=== PATIENT | female | born 1995 | race African-American/Black ===

== ENCOUNTER 2022-08-25 18:55 | Emergency (ER) | payer OTHER, SELFPAY ==
--- NOTE | ~2022-08-25 | CT_ITS ---
EXAMINATION: CT BRAIN W/O DATE: 08/25/2022 19:54 INDICATION: Syncope TECHNIQUE: Computed tomography (CT) of the head was performed without intravenous contrast. The dose- length product was 605.33 mGy-cm. Automated exposure control and iterative reconstruction technique were employed. COMPARISON: No prior studies for comparison. FINDINGS: Normal brain parenchymal volume for age. Normal gupta-white differentiation. No acute intrac ranial hemorrhage, infarction, mass or mass effect. No ventriculomegaly or midline shift. Midline sagittal images demonstrate a normal corpus callosum, c raniovertebral junction and sella turcica. Basilar cisterns are patent. Paranasal sinuses and mastoids are pneumatized. No depressed skull fractures. IMPRESSION: 1. No acute intracranial abnormality. Reviewed, dictated and finalized at location A.
--- NOTE | ~2022-08-25 | XR_ITS ---
XR chest 1V portable 08/25/2022 19:54 Indication: Syncope. Procedure: AP portable chest Comparison: No prior studies for comparison. Findings: Heart size normal for technique. Shallow inspiration with crowding of the pulmonary vessels . No focal air space disease, pulmonary edema, pleural effusion or suspected pneumothorax. No acute o sseous abnormality. Impression: 1: No acute cardiopulmonary disease. Reviewed, dictated and finalized at location A. Impression: 1: No acute cardiopulmonary disease.
[2022-08-25 19:09] VITALS: BP 105/68; PULSE 106; RESP 20; TEMP 37.1; O2SAT 100
--- NOTE | 2022-08-25 19:41 | ECG_ITS ---
Measurements Intervals [place] Rate: 66 P: 72 ME: 162 QRS: 61 QRSD: 89 T: 31 QT: 358 QTc: 377 Interpretive Statements SINUS RHYTHM NORMAL ECG NO PREVIOUS ECG AVAILABLE FOR COMPARISON Electronically Signed On 08-26-2022 13:39:32 CDT by Darryl Mercedes M.D.
--- NOTE | 2022-08-25 19:42 | ED.DIZZY ---
HPI - Dizziness General Chief Complaint: Syncope Stated Complaint: syncopal episode Time Seen by Provider: 08/25/22 19:37 Source: RN notes reviewed History of Present Illness HPI Narrative: Patient presents emergency department from work via EMS for syncope. Patient states that she was standing working when she had a syncopal episode. States she remembers feeling hot prior to the episode she denied having any chest pain or shortness of breath prior to the episode she denies any complaints at this time. States she has never had a previous syncopal episode before in the past. She denies any vision changes chest pain shortness of breath abdominal pain nausea vomiting Related Data Allergies Allergy/AdvReac Type Severity Reaction Status Date / Time No Known Allergies Allergy Verified 08/25/22 20:30 Review of Systems Review of Systems: Gen.: Denies fevers or chills Eyes: Denies eye pain or visual change ENT: Denies congestion Respiratory: Denies shortness of breath or cough CV: Reports syncope GI: Denies abdominal pain nausea, emesis or diarrhea Musculoskeletal: Denies back pain or muscle pain Neuro: Denies numbness, tingling, weakness or focal weakness Skin: Denies rash Except as documented, all other systems reviewed and negative [facility] Past Medical History Medical History (Updated 08/25/22 @ 21:52 by Gage Laureano DO) Patient denies significant medical history Social History Social History (Updated 08/25/22 @ 19:43 by Gage Laureano DO) Smoking status: Never smoker Exam Narrative: APPEARANCE: No acute distress, nontoxic, resting in bed EYES: EOMI, PERRL HEENT: Normocephalic, atraumatic, OMM Neck: Supple no midline tenderness palpation full range of motion without pain RESPIRATORY: No respiratory distress Clear to auscultation bilaterally with no rhonchi wheezing or rales. CARDIOVASCULAR: Regular rate and rhythm without murmurs rubs or gallops. ABDOMINAL: Soft, nontender, nondistended, no rebound or guarding MUSCULOSKELETAl: Moves all extremities. No clubbing, cyanosis or edema. NEURO: Awake and alert x 4. Following commands, speech normal, no focal deficits SKIN:: Warm, dry. No rashes lesions or abrasions PSYCHIATRIC: Normal affect/mood, Course Course Emergency Course: Patient is remained on antisqueak filler throughout stay in ED with no arrhythmias noted Discussed with patient results of workup and diagnosis. Discussed need for follow-up with primary care, proper use of medication, and reasons to return to the emergency department. Patient understands and agrees to current treatment plan Vital Signs Vital signs: Vital Signs Temperature 98.7 F 08/25/22 19:09 Pulse Rate 106 H 08/25/22 19:09 Respiratory Rate 20 08/25/22 19:09 Blood Pressure 105/68 08/25/22 19:09 Pulse Oximetry 100 08/25/22 19:09 Oxygen Delivery Room Air 08/25/22 19:09 Temperature 98.7 F 08/25/22 19:09 Pulse Rate 80 08/25/22 20:42 Respiratory Rate 20 08/25/22 19:09 Blood Pressure 110/79 08/25/22 20:42 Pulse Oximetry 100 08/25/22 19:09 Oxygen Delivery Room Air 08/25/22 19:09 MDM - Dizziness MDM Narrative Medical decision making narrative: Patient's episode of syncope is felt due to high risk cause. Syncopal episode was brief and patient is now back to normal mental status. EKG is reviewed without high-risk changes for syncope: There are no signs of prolonged QT or Brugada syndrome. Patient ambulates with a steady gait and is felt to be a reasonable candidate for further evaluation as an outpatient Lab Data Result diagrams: 08/25/22 20:48 08/25/22 20:48 Labs: Lab Results 08/25/22 08/25/22 08/25/22 Range/Units 20:35 20:42 20:48 WBC 9.1 (4.5-10.0) K/mm3 RBC 4.32 (4.2-5.4) M/mm3 Hgb 12.9 (12.0-15.0) g/dL Hct 39.0 (37.0-47.0) % MCV 90.3 (80-100) fl MCH 29.9 (26-34) pg MCHC 33.1 (32-36) g/dl RDW 13.5 (11.5-14.5)
[2022-08-25 20:37] VITALS: BP 105/69; PULSE 85
[2022-08-25 20:37] LABS: Glucose Point of Care 92 mg/dl (65-105)
[2022-08-25 20:42] VITALS: BP 110/79; PULSE 80
[2022-08-25] MEDS: SODIUM CHLORIDE 0.9% IV 1,000 ML 999 ML IV CONT (20:50)
[2022-08-25 21:10] LABS: Appearance Urine Slightly Cloudy (Clear); Bilirubin Urine 1+ (Negative); Blood Urine 1+ (Negative); Glucose Urine UA Negative (Negative); Ketones Urine 2+ mg/dL (Negative); Leukocyte Esterase Ur Negative LEU/UL (Negative); Nitrate Urine Negative (Negative); Protein Urine 1+ mg/dL (Negative); Specific Grav Ur 1.025 (1.001-1.035)
[2022-08-25 21:13] LABS: Basophils Percent Auto 0.4 % (0.2-1.2); Eosinophils Percent Auto 0.3 % (0-4.4); Hemoglobin 12.9 g/dL (12.0-15.0); Immature Granulocyte Absolute 0.03 K/mm3 (0.00-0.031); Immature Granulocyte Percent A 0.3 % (0-0.5); Lymphocytes Absolute Auto 1.37 K/mm3 (0.9-3.2); Lymphocytes Percent Auto 15.1 % (18.3-44.2); Mean Corpuscular HGB Conc 33.1 g/dl (32-36); Mean Corpuscular Hemoglobin 29.9 pg (26-34); Mean Corpuscular Volume 90.3 fl (80-100); Mean Platelet Volume 12.4 fl (7.4-10.4); Monocytes Absolute Auto 0.4 K/mm3 (0.1-0.6); Monocytes Percent Auto 4.4 % (2.6-8.5); Neutrophils Absolute Auto 7.2 K/mm3 (1.3-6.7); Neutrophils Percent Auto 79.5 % (45.5-73.1); Platelet Count Result 187 k/mm3 (150-375); Red Blood Count 4.32 M/mm3 (4.2-5.4); Red Cell Distribution Width 13.5 % (11.5-14.5); White Blood Count 9.1 K/mm3 (4.5-10.0)
[2022-08-25 21:24] LABS: Alanine Aminotransferase 14 U/L (6-35); Albumin Level 4.8 g/dL (3.5-5.1); Alkaline Phosphatase 53 U/L (38-126); Anion Gap 13 mmol/L (8-16); Aspartate Amino Transferase 28 U/L (14-36); Bilirubin,Total 0.5 mg/dL (0.2-1.3); Blood Urea Nitrogen 11 mg/dL (7-17); Calcium 9.2 mg/dL (8.4-10.2); Carbon Dioxide 26 mmol/L (22-30); Chloride 103 mmol/L (98-107); Estimated CRCL calculation 87 ml/min; Estimated Glomerular Filt Rate > 60; Glucose 84 mg/dL (65-110); Potassium 3.7 mmol/L (3.4-5.0); Sodium 142 mmol/L (137-145)
[2022-08-25 21:25] LABS: Bacteria Urine Trace /hpf; Mucus Urine Heavy /lpf; RBC Urine 21-50 /hpf (0-2); Squamous Epithelial Cell Urine Few /hpf (Few)
[2022-08-25 21:28] LABS: Add Urine Microscopic? YES; Color Urine Dark Yellow (Yellow)
[2022-08-25 21:35] LABS: Troponin I < 0.012 ng/mL (0.000-0.034)
== END 2022-08-25 22:12 | disposition home or self-care (01) ==
PROVIDERS: Emergency Provider Emergency Medicine
DX: R55 Syncope and collapse (principal)
CPT/HCPCS: 36415; 70450; 71045; 80053; 81001; 81025; 82948; 84484; 85025; 93005; 96360; 99284; J7030